=== PATIENT | female | born 1965 | race African-American/Black ===

== ENCOUNTER 2022-03-20 06:09 | Day surgery (SDC) | payer BC ==
[2022-03-13 12:36] VITALS: BMI 56.2
[2022-03-20] MEDS ORDERED: KETOROLAC TROMETHAMINE 30 MG/1 ML VIAL ONE ×2 (07:06→07:08)
[2022-03-20] MEDS ORDERED: SODIUM CHLORIDE 0.9% P/F 10 ML VIAL IJ ONE (07:06)
[2022-03-20] MEDS ORDERED: MIDAZOLAM HCL 2 MG/2 ML SINGLE DOSE VIAL ONE (07:06)
[2022-03-20] MEDS ORDERED: LIDOCAINE HCL/PF 2% SDV 5ML VIAL ONE (07:06)
[2022-03-20] MEDS ORDERED: ceFAZolin SODIUM 1 GM VIAL ONE (07:06)
[2022-03-20] MEDS ORDERED: ONDANSETRON 4 MG/2 ML VIAL ONE (07:06)
[2022-03-20] MEDS ORDERED: PROPOFOL 20 ML ONE (07:06)
[2022-03-20] MEDS ORDERED: SUCCINYLCHOLINE CHLORIDE 200 MG/10 ML SYRINGE ONE (07:10)
[2022-03-20] MEDS ORDERED: BUPIVACAINE HCL/PF 0.25% (2.5MG/ML) 10 ML VIAL ONE (07:11)
[2022-03-20] MEDS ORDERED: LIDOCAINE HCL 1%, 10 MG/ML (20ML VIAL) ONE (07:11)
[2022-03-20 08:48] VITALS: PULSE 60; RESP 16; TEMP 97.8
[2022-03-20] MEDS ORDERED: oxyCODONE HCL 5 MG TABLET PO PRN (08:50)
[2022-03-20 09:23] VITALS: BP 122/68
== END 2022-03-20 09:33 | disposition home or self-care (01) ==
LOC: FASU 06:09
PROVIDERS: ATTEND Orthopaedic Surgery
PROC: 01N50ZZ Release Median Nerve, Open Approach (ICD-10-PCS; principal; 2022-03-20 08:00)
DX: G56.01 Carpal tunnel syndrome, right upper limb (principal)